=== PATIENT | female | born 1995 | race African-American/Black ===

== ENCOUNTER 2017-08-13 12:51 | Emergency (ER) | payer BC ==
[2017-08-13 13:00] VITALS: BP 112/79; PULSE 69; TEMP 97.8; BMI 19.8
--- NOTE | 2017-08-13 13:38 | PDOC ---
History of Present Illness - General Chief Complaint: Chest Pain Stated Complaint: CHEST PAIN Time Seen by Provider: 08/13/17 13:20 - History of Present Illness Initial Comments: 21-year-old healthy female without any significant past medical history ALLERGIES to penicillin and peanuts presents for evaluation of atraumatic left- sided chest pain. She states the pains been going on and off for one year associated with coughing at night. No radiation of symptoms no other complaints no associated symptoms 08/13/17 13:33 Past History - Past Medical History Allergies/Adverse Reactions: Allergies Allergy/AdvReac Type Severity Reaction Status Date / Time peanut Allergy Severe Itching Verified 08/13/17 12:53 Penicillins Allergy Severe Rash Verified 08/13/17 12:53 Home Medications: Ambulatory Orders Guaifenesin [Robitussin -] 100 mg PO HS #210 ml 08/13/17 Ibuprofen [Motrin -] 600 mg PO TID #30 tablet 08/13/17 Asthma: No Cancer: No Cardiac Disorders: No COPD: No DVT: No Diabetes: No HTN: No Seizures: No Thyroid Disease: No - Suicide/Smoking/Psychosocial Hx Smoking History: Never smoked Have you smoked in the past 12 months: No Number of Cigarettes Smoked Daily: 0 Information on smoking cessation initiated: No Hx Alcohol Use: No Drug/Substance Use Hx: No Substance Use Type: None Hx Substance Use Treatment: No Review of Systems - Review of Systems Comments:: GENERAL/CONSTITUTIONAL: [No fever or chills. No weakness. No weight change.] HEAD, EYES, EARS, NOSE AND THROAT: [No change in vision. No ear pain or discharge. No sore throat.] CARDIOVASCULAR: [+ chest pain no shortness of breath.] RESPIRATORY: [+ cough, no wheezing, or hemoptysis.] GASTROINTESTINAL: [No nausea, vomiting, diarrhea or constipation. No rectal bleeding.] GENITOURINARY: [No dysuria, frequency, or change in urination.] MUSCULOSKELETAL: [No joint or muscle swelling or pain. No neck or back pain.] SKIN AND BREASTS: [No rash or easy bruising.] NEUROLOGIC: [No headache, vertigo, loss of consciousness, or loss of sensation.] PSYCHIATRIC: [No depression or anxiety.] ENDOCRINE: [No increased thirst. No abnormal weight change.] HEMATOLOGIC/LYMPHATIC: [No anemia, easy bleeding, or history of blood clots.] ALLERGIC/IMMUNOLOGIC: [No hives or skin allergy. No latex allergy.] 08/13/17 13:34 *Physical Exam - Vital Signs Last Vital Signs Temp Pulse Resp BP Pulse Ox 97.8 F 69 18 112/79 100 08/13/17 12:53 08/13/17 12:53 08/13/17 12:53 08/13/17 12:53 08/13/17 12:53 - Physical Exam Comments: GENERAL: [The patient is awake, alert, and fully oriented, in no acute distress. ] HEAD: [Normal with no signs of trauma.] EYES: [Pupils equal, round and reactive to light, extraocular movements intact, sclera anicteric, conjunctiva clear.] ENT: [Ears normal, nares patent, oropharynx clear without exudates. Moist mucous membranes.] NECK: [Normal range of motion, supple without lymphadenopathy, JVD, or masses.] LUNGS: [Breath sounds equal, clear to auscultation bilaterally. No wheezes, and no crackles.] HEART: [Regular rate and rhythm, normal S1 and S2 without murmur, rub or gallop. There is tenderness about the left upper costochondral junctions] ABDOMEN: [Soft, nontender, normoactive bowel sounds. No guarding, no rebound. No masses.] EXTREMITIES: [Normal range of motion, no edema. No clubbing or cyanosis. No cords, erythema, or tenderness.] NEUROLOGICAL: [Cranial nerves II through XII grossly intact. Normal speech, normal gait.] PSYCH: [Normal mood, normal affect.] SKIN: [Warm, Dry, normal turgor, no rashes or lesions noted.] 08/13/17 13:34 Medical Decision Making - Medical Decision Making This is very reproducible chest pain with palpation. I'll give her an anti- inflammatory and cough syrup for nighttime use follow-up with her PCP for further evaluation her chest is clear today on exam. Her EKG was reviewed and is normal 08/13/17 13:35 08/13/17 13:36 *DC/Admit/Observation/Transfer Diagnosis at time of Disposition: Costochondral chest pain - Discharge Dispostion Disposition: HOME Condition at time of disposition: Stable Decision to Admit order: No - Referrals Referrals: Audie Samuels MD [Staff Physician] - - Patient Instructions Printed Discharge Instructions: Costochondritis, DI for Costochondritis Additional Instructions: This is costochondritis pain which is a noncardiac type chest pain. I prescribed anti-inflammatories for U as well as cough syrup for nighttime use. Return to the emergency room if symptoms worsen or go unresolved prior to follow -up. In the meantime follow-up with the [facility] in the next day or 2 - Post Discharge Activity
--- NOTE | 2017-08-14 11:57 | EKG ---
Test Reason : Blood Pressure : / mmHG Vent. Rate : 071 BPM Atrial Rate : 071 BPM P-R Int : 146 ms QRS Dur : 080 ms QT Int : 392 ms P-R-T Axes : 073 058 043 degrees QTc Int : 425 ms NORMAL SINUS RHYTHM WITH SINUS ARRHYTHMIA NORMAL ECG NO PREVIOUS ECGS AVAILABLE Confirmed by MD MYAH, KENDELL ([id number]) on 08/14/2017 11:56:52 AM Referred By: Confirmed By:KENDELL GLASGOW MD
== END 2017-08-13 14:07 | disposition home or self-care (01) ==
LOC: JERFT 12:51
DX: M94.0 Chondrocostal junction syndrome [Tietze] (principal)
CPT/HCPCS: 93005; 93010; 99281-25

== ENCOUNTER 2018-05-06 16:16 | Emergency (ER) | payer BC | END 2018-05-06 17:54 | disposition home or self-care (01) | LOC: JERFT 16:16 ==

== ENCOUNTER 2019-04-28 16:18 | Emergency (ER) | payer BC ==
[2019-04-28 16:30] VITALS: BP 103/67; PULSE 106; TEMP 100.9; BMI 20.9
[2019-04-28] MEDS ORDERED: IBUPROFEN 600 MG TABLET (FP) PO ONE ×2 (16:31→17:22)
--- NOTE | 2019-04-28 16:31 | PDOC ---
Rapid Medical Evaluation Time Seen by Provider: 04/28/19 16:26 Medical Evaluation: Allergies Allergy/AdvReac Type Severity Reaction Status Date / Time peanut Allergy Severe Itching Verified 05/06/18 16:33 Penicillins Allergy Severe Rash Verified 05/06/18 16:33 04/28/19 16:27 Pt c/o: fatigue, vomiting, and fever and cough x 1 day Pt on brief exam: febrile, oropharynx clear pt ordered for: motrin and flu swab Pt to proceed to the ED Discharge Disposition - Diagnosis Viral syndrome Fever Qualifiers: Fever type: unspecified Qualified Code(s): R50.9 - Fever, unspecified - Discharge Dispostion Disposition: HOME Condition at time of disposition: Stable - Prescriptions Prescriptions: Benzonatate [Tessalon Pearls -] 100 mg PO Q8H PRN #20 capsule PRN Reason: Cough Ipratropium [place] 2 spray NS BID PRN 5 Days #1 spray PRN Reason: nasal congestion Ondansetron [Zofran *Odt*] 4 mg SL Q8H PRN #12 od.tablet PRN Reason: nausea Oseltamivir Phosphate [Tamiflu -] 75 mg PO BID #10 capsule - Referrals - Patient Instructions Printed Discharge Instructions: DI for Viral Upper Respiratory Infection -- Adult Additional Instructions: Your flu test is negative. Symptoms likely caused by a viral upper respiratory infection. Take prescribed medication as prescribed for symptoms. Increase fluid intake. Alternate between Tylenol Motrin as needed for fever. Follow-up with primary care as needed - Post Discharge Activity Work/School Note: Back to Work
--- NOTE | 2019-04-28 17:34 | PDOC ---
History of Present Illness - General Chief Complaint: Cold Symptoms Stated Complaint: FLU LIKE SYMPTOMS Time Seen by Provider: 04/28/19 16:26 History Source: Patient Exam Limitations: Clinical Condition - History of Present Illness Initial Comments: 04/28/19 17:30 Patient with no significant past medical history present with complaint of 1 day history of persistent dry cough, nasal congestion, runny nose, fever, chills , body aches and nausea. Denies vomiting, abdominal pain, diarrhea, constipation. Denies any other symptoms. Patient has not taken anything for symptoms. Denies recent travel or sick contact Is this a multiple visit Asthma Patient?: No Timing/Duration: 24 hours Past History - Past Medical History Allergies/Adverse Reactions: Allergies Allergy/AdvReac Type Severity Reaction Status Date / Time peanut Allergy Severe Itching Verified 05/06/18 16:33 Penicillins Allergy Severe Rash Verified 05/06/18 16:33 Home Medications: Ambulatory Orders Doxycycline Hyclate [Vibratab -] 100 mg PO BID #14 tablet 05/06/18 Benzonatate [Tessalon Pearls -] 100 mg PO Q8H PRN #20 capsule 04/28/19 Ipratropium [place] 2 spray NS BID PRN 5 Days #1 spray 04/28/19 Ondansetron [Zofran *Odt*] 4 mg SL Q8H PRN #12 od.tablet 04/28/19 Oseltamivir Phosphate [Tamiflu -] 75 mg PO BID #10 capsule 04/28/19 Asthma: No Cancer: No Cardiac Disorders: No COPD: No DVT: No Diabetes: No HTN: No Seizures: No Thyroid Disease: No - Psycho Social/Smoking Cessation Hx Smoking History: Never smoked Have you smoked in the past 12 months: No Number of Cigarettes Smoked Daily: 0 Information on smoking cessation initiated: No Hx Alcohol Use: No Drug/Substance Use Hx: No Substance Use Type: None Hx Substance Use Treatment: No Review of Systems - Review of Systems Able to Perform ROS?: Yes Is the patient limited [place]istan[place] proficient: No Constitutional: Yes: Chills, Fever, Malaise HEENTM: Yes: Symptoms Reported, See HPI, Nose Congestion. No: Eye Pain, Blurred Vision, Tearing, Recent change in vision, Double Vision, Cataracts, Ear Pain, Ocular Prothesis, Ear Discharge, Nose Pain, Tinnitus, Nose Bleeding, Hearing Loss, Throat Pain, Throat Swelling, Mouth Pain, Dental Problems, Difficulty Swallowing, Mouth Swelling, Other Respiratory: Yes: Symptoms reported, See HPI, Cough. No: Orthopnea, Shortness of Breath, SOB with Exertion, SOB at Rest, Stridor, Wheezing, Productive cough, Hemoptysis, Other Cardiac (ROS): No: Symptoms Reported, See HPI, Chest Pain, Edema, Irregular Heart Rate, Lightheadedness, Palpitations, Syncope, Chest Tightness, Other ABD/GI: Yes: Symptoms Reported, See HPI, Nausea. No: Abdominal Distended, Abd. Pain w/ defecation, Constipated, Diarrhea, Difficulty Swallowing, Rectal Bleeding, Vomiting, Abdominal cramping : No: Symptoms Reported Musculoskeletal: No: Symptoms Reported All Other Systems: Reviewed and Negative *Physical Exam - Vital Signs Last Vital Signs Temp Pulse Resp BP Pulse Ox 100.9 F H 106 H 20 103/67 97 04/28/19 16:28 04/28/19 16:28 04/28/19 16:28 04/28/19 16:28 04/28/19 16:28 - Physical Exam 04/28/19 17:32 GENERAL: Well developed, well nourished. Awake and alert. No acute distress. HEENT: Normocephalic, atraumatic. PERRLA, EOMI. No conjunctival pallor. Sclera are non-icteric. Moist mucous membranes. Oropharynx is clear. NECK: Supple. Full ROM. CARDIOVASCULAR: Regular rate and rhythm. No murmurs, rubs, or gallops. Distal pulses are 2+ and symmetric. PULMONARY: No evidence of respiratory distress. Lungs clear to auscultation bilaterally. No wheezing, rales or rhonchi. ABDOMINAL: Soft. Non-tender. Non-distended. No rebound or guarding. No organomegaly. Normoactive bowel sounds. MUSCULOSKELETAL Normal range of motion at all joints. SKIN: Warm and dry. Normal capillary refill. No rashes. No cyanosis. NEUROLOGICAL: Alert, awake, appropriate. Gait is normal without ataxia. PSYCHIATRIC: Cooperative. Good eye contact. Appropriate mood General Appearance: Yes: Nourished, Appropriately Dressed. No: Apparent Distress ED Treatment Course - Medications Given in the ED: ED Medications Discontinued Medications Generic Name Dose Route Start Last Admin Trade Name Freq PRN Reason Stop Dose Admin Ibuprofen 600 mg 04/28/19 16:31 04/28/19 17:21 Motrin - PO 04/28/19 16:32 600 mg ONCE ONE Administration Medical Decision Making - Medical Decision Making 04/28/19 17:31 Patient with no significant past medical history present with complaint of 1 day history of persistent dry cough, nasal congestion, runny nose, fever, chills , body aches and nausea. Denies vomiting, abdominal pain, diarrhea, constipation. Denies any other symptoms. Patient has not taken anything for symptoms. Denies recent travel or sick contact Exam significant for fever of 100.9 F. Lungs clear to auscultation bilateral patient no acute distress. Patient symptoms likely viral URI with viral syndrome. Rapid flu negative for influenza. Patient stable for outpatient management on Tessalon [place] as needed for cough and Atrovent for nasal congestion and Zofran PRN for nausea with advised to increase fluid intake and alternate between Tylenol Motrin as needed for fever with PCP follow-up Discharge - Discharge Information Problems reviewed: Yes Clinical Impression/Diagnosis: Viral syndrome Fever Qualifiers: Fever type: unspecified Qualified Code(s): R50.9 - Fever, unspecified Condition: Stable Disposition: HOME - Admission No - Additional Discharge Information Prescriptions: Benzonatate [Tessalon Pearls -] 100 mg PO Q8H PRN #20 capsule PRN Reason: Cough Ipratropium [place] 2 spray NS BID PRN 5 Days #1 spray PRN Reason: nasal congestion Ondansetron [Zofran *Odt*] 4 mg SL Q8H PRN #12 od.tablet PRN Reason: nausea Oseltamivir Phosphate [Tamiflu -] 75 mg PO BID #10 capsule - Follow up/Referral - Patient Discharge Instructions Patient Printed Discharge Instructions: DI for Viral Upper Respiratory Infection -- Adult Additional Instructions: Your flu test is negative. Symptoms likely caused by a viral upper respiratory infection. Take prescribed medication as prescribed for symptoms. Increase fluid intake. Alternate between Tylenol Motrin as needed for fever. Follow-up with primary care as needed - Post Discharge Activity Work/Back to School Note: Back to Work
== END 2019-04-28 17:35 | disposition home or self-care (01) ==
LOC: JERFT 16:18
DX: J06.9 Acute upper respiratory infection, unspecified (principal); B97.89 Other viral agents as the cause of diseases classified elsewhere; Z88.0 Allergy status to penicillin; Z91.010 Allergy to peanuts
CPT/HCPCS: 87804; 99281-25

== ENCOUNTER 2019-05-26 09:17 | Emergency (ER) | payer BC ==
[2019-05-26 09:26] VITALS: BP 117/82; PULSE 82; TEMP 98.1; BMI 20.9
[2019-05-26] MEDS ORDERED: FAMOTIDINE 20 MG TABLET PO ONE (09:56)
[2019-05-26] MEDS ORDERED: DEXAMETHASONE SOD PHOSPHATE 10 MG/1 ML VIAL IM ONE (09:56)
[2019-05-26] MEDS ORDERED: DEXAMETHASONE SOD PHOSPHATE 10 MG/1 ML VIAL ONE (09:58)
[2019-05-26] MEDS ORDERED: FAMOTIDINE 20 MG TABLET ONE (09:58)
--- NOTE | 2019-05-26 10:06 | PDOC ---
History of Present Illness - General Chief Complaint: Rash Stated Complaint: ALLERGIC REACTION Time Seen by Provider: 05/26/19 09:27 History Source: Patient Exam Limitations: Clinical Condition - History of Present Illness Initial Comments: 05/26/19 09:57 Patient with no significant past medical history present with complaint of whole body itching and rash to bilateral side of face and neck area status post using glider of her bed to green party yesterday which she started to break out. Patient reported using Benadryl yesterday which helped with her symptoms rash went away but started using a new soap last night and started breaking out again. Denies choking sensation, tongue or lip swelling. Denies shortness of breath. Patient has not taken anything today for symptoms. Reported no rash to rest of body but have low body itching. Denies any other symptoms Is this a multiple visit Asthma Patient?: No Timing/Duration: 24 hours Past History - Past Medical History Allergies/Adverse Reactions: Allergies Allergy/AdvReac Type Severity Reaction Status Date / Time peanut Allergy Severe Itching Verified 05/06/18 16:33 Penicillins Allergy Severe Rash Verified 05/06/18 16:33 Home Medications: Ambulatory Orders Doxycycline Hyclate [Vibratab -] 100 mg PO BID #14 tablet 05/06/18 Benzonatate [Tessalon Pearls -] 100 mg PO Q8H PRN #20 capsule 04/28/19 Ipratropium [place] 2 spray NS BID PRN 5 Days #1 spray 04/28/19 Ondansetron [Zofran *Odt*] 4 mg SL Q8H PRN #12 od.tablet 04/28/19 Oseltamivir Phosphate [Tamiflu -] 75 mg PO BID #10 capsule 04/28/19 Famotidine [Pepcid -] 20 mg PO BID 5 Days #10 tablet 05/26/19 predniSONE [Deltasone -] 20 mg PO BID 5 Days #10 tablet 05/26/19 Asthma: No Cancer: No Cardiac Disorders: No COPD: No DVT: No Diabetes: No HTN: No Seizures: No Thyroid Disease: No - Psycho Social/Smoking Cessation Hx Smoking History: Never smoked Have you smoked in the past 12 months: No Number of Cigarettes Smoked Daily: 0 Information on smoking cessation initiated: No Hx Alcohol Use: No Drug/Substance Use Hx: No Substance Use Type: None Hx Substance Use Treatment: No Review of Systems - Review of Systems Able to Perform ROS?: Yes Is the patient limited Norwegian proficient: No Constitutional: No: Chills, Fever, Malaise HEENTM: No: Symptoms Reported, See HPI, Eye Pain, Blurred Vision, Tearing, Recent change in vision, Double Vision, Cataracts, Ear Pain, Ocular Prothesis, Ear Discharge, Nose Pain, Nose Congestion, Tinnitus, Nose Bleeding, Hearing Loss , Throat Pain, Throat Swelling, Mouth Pain, Dental Problems, Difficulty Swallowing, Mouth Swelling, Other Respiratory: No: Symptoms reported, See HPI, Cough, Orthopnea, Shortness of Breath, SOB with Exertion, SOB at Rest, Stridor, Wheezing, Productive cough, Hemoptysis, Other Cardiac (ROS): No: Symptoms Reported, See HPI, Chest Pain, Edema, Irregular Heart Rate, Lightheadedness, Palpitations, Syncope, Chest Tightness, Other ABD/GI: No: Symptoms Reported, Nausea, Vomiting Integumentary: Yes: Symptoms Reported, See HPI, Pruritus (all over the body), Rash (face and anterior neck) All Other Systems: Reviewed and Negative *Physical Exam - Vital Signs Last Vital Signs Temp Pulse Resp BP Pulse Ox 98.1 F 82 18 117/82 99 05/26/19 09:24 05/26/19 09:24 05/26/19 09:24 05/26/19 09:24 05/26/19 09:24 - Physical Exam 05/26/19 10:12 GENERAL: Well developed, well nourished. Awake and alert. No acute distress. HEENT: Normocephalic, atraumatic. PERRLA, EOMI. No conjunctival pallor. Sclera are non-icteric. Moist mucous membranes. Oropharynx is clear. NECK: Supple. Full ROM. CARDIOVASCULAR: Regular rate and rhythm. No murmurs, rubs, or gallops. Distal pulses are 2+ and symmetric. PULMONARY: No evidence of respiratory distress. Lungs clear to auscultation bilaterally. No wheezing, rales or rhonchi. MUSCULOSKELETAL Normal range of motion at all joints. SKIN: Warm and dry. Normal capillary refill. Diffuse urticarial rash to anterior neck and bilateral face on her cheeks NEUROLOGICAL: Alert, awake, appropriate. Gait is normal without ataxia. PSYCHIATRIC: Cooperative. Good eye contact. Appropriate mood General Appearance: Yes: Nourished, Appropriately Dressed. No: Apparent Distress Medical Decision Making - Medical Decision Making 05/26/19 10:10 Patient with no significant past medical history present with complaint of whole body itching and rash to bilateral side of face and neck area status post using glider of her bed to green party yesterday which she started to break out. Patient reported using Benadryl yesterday which helped with her symptoms rash went away but started using a new soap last night and started breaking out again. Denies choking sensation, tongue or lip swelling. Denies shortness of breath. Patient has not taken anything today for symptoms. Reported no rash to rest of body but have low body itching. Denies any other symptoms Exams significant for localized urticarial rash to anterior neck and bilateral cheeks without excoriations. Oropharynx normal and patent. Patient in no acute distress. No rash to the rest of the body. Symptoms likely allergic dermatitis. Decadron 10 mg IM and Pepcid 40 mg p.o. ordered for allergic reaction. Observe patient and reassess in 15 minutes 05/26/19 10:27 Patient still with no acute distress no worsening allergic reaction. Patient stable for discharge on Pepcid twice daily for 5 days and prednisone twice daily for 5 days with strict follow-up Discharge - Discharge Information Problems reviewed: Yes Clinical Impression/Diagnosis: Allergic rash present on examination Condition: Stable Disposition: HOME - Admission No - Additional Discharge Information Prescriptions: Famotidine [Pepcid -] 20 mg PO BID 5 Days #10 tablet predniSONE [Deltasone -] 20 mg PO BID 5 Days #10 tablet - Follow up/Referral Referrals: Penny Oreilly MD [Primary Care Provider] - - Patient Discharge Instructions Patient Printed Discharge Instructions: DI for Hives Additional Instructions: Use prescribed medication as prescribed for allergic reaction. Come back to emergency room if worsening allergic reaction including shortness of breath, tongue or lip swelling otherwise follow-up with your primary care - Post Discharge Activity Work/Back to School Note: Back to Work
== END 2019-05-26 10:22 | disposition home or self-care (01) ==
LOC: JERFT 09:17
PROC: 3E0233Z Introduction of Anti-inflammatory into Muscle, Percutaneous Approach (ICD-10-PCS; principal; 2019-05-26)
DX: L50.0 Allergic urticaria (principal)
CPT/HCPCS: 99284-25; J1100